=== PATIENT | female | born 1990 | race Asian ===

== ENCOUNTER 2018-04-09 19:00 | Inpatient (IN) | payer SELFPAY ==
[~2018-04-09] VITALS: Ht 162.6 cm; Wt 68.5 kg
[2018-04-09] MEDS ORDERED: PROMETHAZINE 25 MG/ML VIAL IVP PRN (20:25)
[2018-04-09] MEDS ORDERED: METHYLERGONOVINE 0.2 MG/ML AMP IM PRN (20:25)
[2018-04-09] MEDS ORDERED: NALBUPHINE 10 MG/ML AMP IVP PRN (20:25)
[2018-04-09] MEDS ORDERED: LACTATED RINGERS 1,000 ML IV SCH (20:25)
[2018-04-09] MEDS ORDERED: OXYTOCIN 20 UNITS in LACTATED RINGERS 1,000 ML IV SCH (20:25)
[2018-04-09] MEDS ORDERED: MISOPROSTOL 25 MCG TAB VG PRN (20:25)
[2018-04-09] MEDS ORDERED: OXYTOCIN 10 UNITS/ML VIAL IM SCH (21:00)
[2018-04-09] MEDS ORDERED: AMPICILLIN 2,000 MG in NACL 0.9% MINI-BAG PLUS 100 ML IV SCH (21:00)
[2018-04-09 21:25] LABS: BASOPHILS % (AUTO) 0.2 % (0.0-2.0); EOSINOPHILS % (AUTO) 0.5 % (0.0-4.0); HEMATOCRIT 35.8 % (36-48); HEMOGLOBIN 11.9 g/dL (12.0-16.0); LYMPHOCYTES # (AUTO) 1.9 K/uL (2.5-16.5); LYMPHOCYTES % (AUTO) 19.1 % (20.5-51.1); MEAN CORPUSCULAR HEMOGLOBIN 31 pg (27-31); MEAN CORPUSCULAR HGB CONC 33 g/dL (33-37); MEAN CORPUSCULAR VOLUME 94.5 fL (80-94); MONOCYTES # (AUTO) 0.8 K/uL (0.8-1.0); NEUTROPHILS # (AUTO) 7.3 K/uL (1.8-7.7); NEUTROPHILS % (AUTO) 72.2 % (42.2-75.2); PLATELET COUNT (AUTO) 231 K/uL (140-450); RED BLOOD CELL COUNT(AUTO) 3.79 MIL/uL (4.20-5.40); RED CELL DISTRIBUTION WIDTH 13.4 % (11.6-13.7); WHITE BLOOD COUNT (AUTO) 10.1 K/uL (4.8-10.8)
[2018-04-09] MEDS ORDERED: AMPICILLIN 2,000 MG VIAL ONE (22:09)
[2018-04-09 22:17] LABS: APPEARANCE,URINE CLOUDY (CLEAR); BILIRUBIN,URINE NEGATIVE (NEGATIVE); BLOOD, URINE NEGATIVE (NEGATIVE); COLOR,URINE YELLOW (YELLOW); LEUKOCYTE ESTERASE ,URINE NEGATIVE (NEGATIVE); NITRITE, URINE NEGATIVE (NEGATIVE); UGLUCOSE NEGATIVE (NEGATIVE)
[2018-04-09] MEDS ORDERED: ROPIVACAINE 0.2%/NS PREMIX 250 ML EPI ONE (22:59)
[2018-04-09] MEDS ORDERED: PREN-546 PO (23:48)
[2018-04-09 23:49] VITALS: BP 106/69
[2018-04-10] MEDS ORDERED: OXYTOCIN 20 UNITS/LR PREMIX 1,000 ML IV ONE (00:16)
[2018-04-10] MEDS: AMPICILLIN 1,000 MG in NACL 0.9% MINI-BAG PLUS 50 ML IV SCH ×4 (02:08→13:50)
[2018-04-10] MEDS ORDERED: AMPICILLIN 1,000 MG VIAL ONE ×4 (02:08→13:47)
[2018-04-10] MEDS ORDERED: ROPIVACAINE 0.2%/NS PREMIX 250 ML EPI ONE ×2 (06:58→13:10)
[2018-04-10] MEDS ORDERED: fentaNYL 0.05 MG/ML VIAL ONE (10:53)
[2018-04-10] MEDS ORDERED: fentaNYL 0.05 MG/ML VIAL IM ONE ×2 (11:00)
--- NOTE | 2018-04-10 11:28 | NUR ---
PATIENT HAS BEEN SCREENED AND CATEGORIZED LOW NUTRITION RISK. PATIENT WILL BE SEEN WITHIN 7 DAYS OF ADMISSION. 04/16/[address]
[2018-04-10] MEDS ORDERED: OXYTOCIN 10 UNITS/ML VIAL ONE (16:09)
[2018-04-10] MEDS ORDERED: OXYTOCIN 10 UNITS/ML VIAL IM PRN (17:45)
[2018-04-10] MEDS ORDERED: MEASLES, MUMPS, AND RUBELLA 1 VIAL SQVAC PRN (17:45)
[2018-04-10] MEDS ORDERED: TEMAZEPAM 15 MG CAP PO PRN (17:45)
[2018-04-10] MEDS ORDERED: oxyCODONE/APAP 5/325 MG 1 TAB TAB PO PRN (17:45)
[2018-04-10] MEDS ORDERED: METHYLERGONOVINE 0.2 MG/ML AMP IM PRN (17:45)
[2018-04-10] MEDS ORDERED: BENZOCAINE/MENTHOL 20%-0.5% 60 GM CAN TP PRN (17:45)
[2018-04-10] MEDS ORDERED: HYDROcodone/APAP 5/325 MG 1 TAB TAB PO PRN (17:45)
[2018-04-10] MEDS ORDERED: DOCUSATE SOD/SENNA 50/8.6 MG 1 TAB PO SCH (21:00)
[2018-04-10] MEDS: IBUPROFEN 800 MG TAB PO PRN (22:01)
[2018-04-11] MEDS: IBUPROFEN 800 MG TAB PO PRN (05:39)
[2018-04-11 06:51] LABS: HEMATOCRIT 30.3 % (36-48); HEMOGLOBIN 10.2 g/dL (12.0-16.0)
[2018-04-11] MEDS ORDERED: SHARK OIL/PHENYLEPHRINE 60 GM TUBE TP PRN ×2 (11:00→11:07)
== END 2018-04-11 18:10 | disposition home or self-care (01) | DRG 775 ==
LOC: MFCC 19:00
PROVIDERS: ADMIT Obstetrics & Gynecology; ATTEND Obstetrics & Gynecology
PROC: 10E0XZZ Delivery of Products of Conception, External Approach (ICD-10-PCS; principal; 2018-04-10)
PROC: 3E0234Z Introduction of Serum, Toxoid and Vaccine into Muscle, Percutaneous Approach (ICD-10-PCS; 2018-04-10)
PROC: 3E0R3BZ Introduction of Anesthetic Agent into Spinal Canal, Percutaneous Approach (ICD-10-PCS; 2018-04-10)
PROC: 00HU33Z Insertion of Infusion Device into Spinal Canal, Percutaneous Approach (ICD-10-PCS; 2018-04-10)
PROC: 3E033VJ Introduction of Other Hormone into Peripheral Vein, Percutaneous Approach (ICD-10-PCS; 2018-04-10)
PROC: 0W8NXZZ Division of Female Perineum, External Approach (ICD-10-PCS; 2018-04-10)
DX: O99.824 Streptococcus B carrier state complicating childbirth (principal); Z23 Encounter for immunization; Z3A.39 39 weeks gestation of pregnancy; Z37.0 Single live birth
CPT/HCPCS: 36415; 51702; 81003; 85018; 85025; 86592; 86886; 86900; 86901; 87340; 90715; J0290; J2590; J2795; J3010; J7120